=== PATIENT | male | born 1995 | race Caucasian/White ===

== ENCOUNTER 2019-08-18 23:53 | Emergency (ER) | payer OTHER ==
[~2019-08-18] VITALS: Ht 180.3 cm; Wt 71.0 kg
--- NOTE | 2019-08-19 00:47 | NUR ---
First contact w/ pt. Pt amb w/ steady gait to room and attempting ua at this time.
--- NOTE | 2019-08-19 01:00 | NUR ---
Pt presents to ed c/o blood in stool and nausea w/ bilateral flank pain. Pt denies any further gi/gu s/s. States able to tolerate po intake. denies any relevant medical hx.
[2019-08-19 01:21] LABS: MICROSCOPIC NOT IND
[2019-08-19 01:25] LABS: CULTURE INDICATED? NO
[2019-08-19 01:25] LABS: BASOPHILS # (AUTO) 0.02 x10^3/uL (0-0.1); BASOPHILS % (AUTO) 0 % (0-1); EOSINOPHILS # (AUTO) 0.16 x10^3/uL (0-0.4); EOSINOPHILS % (AUTO) 2 % (1-7); LYMPHOCYTES # (AUTO) 2.08 x10^3/uL (1-3.4); LYMPHOCYTES % (AUTO) 28 % (22-44); MD NO; MEAN CORPUSCULAR HEMOGLOBIN 29.8 pg (27.5-34.5); MEAN CORPUSCULAR HGB CONC 33.8 g/dL (33.2-36.2); MEAN CORPUSCULAR VOLUME 88.2 fL (81-97); MEAN PLATELET VOLUME 8.2 fL (7.4-10.4); MONOCYTES # (AUTO) 0.51 x10^3/uL (0.2-0.8); MONOCYTES % (AUTO) 7 % (2-9); NEUTROPHILS # (AUTO) 4.81 x10^3/uL (1.8-6.8); NEUTROPHILS % (AUTO) 64 % (42-75); PLATELET COUNT 278 x10^3/uL (130-400); RED BLOOD COUNT 5.08 x10^6/uL (4.38-5.82); RED CELL DISTRIBUTION WIDTH 12.4 % (9.4-14.8)
[2019-08-19 01:32] LABS: ALANINE AMINOTRANSFERASE 24 U/L (12-78); ALBUMIN 4.2 g/dL (3.4-5.0); ANION GAP 6 mmol/L (5-15); CHLORIDE 109 mmol/L (98-107); CREATININE 0.91 mg/dL (0.7-1.3)
[2019-08-19 01:35] LABS: ALKALINE PHOSPHATASE 76 U/L (45-117); BILIRUBIN,TOTAL 0.5 mg/dL (0.2-1.0); TOTAL PROTEIN 7.5 g/dL (6.4-8.2)
--- NOTE | 2019-08-19 01:55 | NUR ---
All results back. PT up for recheck.
[2019-08-19] MEDS ORDERED: ONDANSETRON 2MG/ML, 2ML ONE (01:57)
[2019-08-19] MEDS ORDERED: MORPHINE SULFATE 4 MG/ML, 1ML ONE (01:57)
[2019-08-19] MEDS ORDERED: MORPHINE SULFATE 4 MG/ML, 1ML IVPush ONE (02:00)
[2019-08-19] MEDS ORDERED: ONDANSETRON 2MG/ML, 2ML IVPush ONE (02:00)
[2019-08-19] MEDS ORDERED: OMNIPAQUE 350 MG/ML, 100ML BOTTLE ONE (02:17)
--- NOTE | 2019-08-19 03:07 | NUR ---
All results back. Pt up for recheck.
[2019-08-19 03:55] VITALS: BP 111/71
== END 2019-08-19 04:03 | disposition home or self-care (01) ==
LOC: ED 08-19 03:45
DX: K62.5 Hemorrhage of anus and rectum (principal); I88.0 Nonspecific mesenteric lymphadenitis; R11.2 Nausea with vomiting, unspecified
CPT/HCPCS: 36415; 74177; 80053; 81003; 83690; 85025; 96374; 96375; 99284; J2270; J2405; Q9967